=== PATIENT | male | born 1995 | race African-American/Black ===

== ENCOUNTER 2017-11-17 04:17 | Emergency (ER) | payer BC ==
[~2017-11-17] VITALS: Ht 172.7 cm; Wt 55.3 kg
[2017-11-17 04:51] LABS: HEMATOCRIT 42.2 % (38.0-50.0); MCH 31.6 PG (29.0-34.0); MCHC 35.5 G/DL (30.0-36.0); MCV 88.8 FL (86-99); PLATELET COUNT 225 K/uL (156-360); RBC DIS.WIDTH-CV 11.9 % (11.8-14.6); RBC DIS.WIDTH-SD 38.1 % (39-53); RED BLOOD COUNT 4.75 M/uL (4.00-5.50); WHITE BLOOD COUNT 15.6 K/uL (4.1-10.2)
[2017-11-17 04:54] LABS: ALBUMIN 4.4 g/dL (3.2-4.8); CHLORIDE 108 mEq/L (99-109); POTASSIUM 3.7 mEq/L (3.7-5.4); SODIUM 145 mEq/L (136-147)
[2017-11-17 04:56] LABS: GLUCOSE 148 mg/dL (70-99)
[2017-11-17 04:57] LABS: TOTAL PROTEIN 7.2 g/dL (6.4-8.3)
[2017-11-17 05:00] LABS: ALKALINE PHOSPHATASE 79 IU/L (3-129); CREATININE 1.6 mg/dL (0.6-1.3); GFR ESTIMATE (CALCULATED) > 59 mL/min/ (58.99-99999)
[2017-11-17 05:01] LABS: UREA NITROGEN (BUN) 16 mg/dL (9-23)
[2017-11-17 05:02] LABS: AST (GOT) 25 IU/L (2-34)
[2017-11-17 05:03] LABS: ALT (GPT) 15 IU/L (3-49); LIPASE 38 U/L (1.0-51.0)
[2017-11-17] MEDS ORDERED: ZOFRAN4 MG PO (05:44)
[2017-11-17 06:01] LABS: APPEARANCE CLEAR ((CLEAR)); BILIRUBIN NEGATIVE; BLOOD NEGATIVE; COLOR YELLOW ((YELLOW)); GLUCOSE (STRIP) NEGATIVE; KETONES NEGATIVE; LEUKOCYTES NEGATIVE; NITRITE NEGATIVE; PROTEIN (STRIP) 100; UROBILINOGEN 0.2 MG/DL (0.2-1.0)
[2017-11-17 06:12] LABS: BACTERIA RARE /HPF; EPITHELIAL CELLS RARE /HPF; MUCUS 1+ /LPF; RED BLOOD CELLS 0-5 /HPF (0-5); UCUL ADDED? NO; WHITE BLOOD CELLS 0-5 /HPF (0-5)
[2017-11-17 08:06] VITALS: BP 147/101
== END 2017-11-17 08:09 | disposition home or self-care (01) ==
LOC: EME 04:17
DX: R10.10 Upper abdominal pain, unspecified (principal); R11.2 Nausea with vomiting, unspecified
CPT/HCPCS: 74022; 74176; 80053; 81003; 83690; 85027; 99281; 99285; J2405; J7030